=== PATIENT | male | born 1965 | race Hispanic/Latino ===

== ENCOUNTER 2021-02-01 10:51 | Emergency (ER) | payer OTHER ==
[2021-02-01 12:21] LABS: Absolute Lymphocytes (CBC) 1.3 K/uL (0.7-4.9); Basophils % 0.6 % (0-1.3); Hematocrit 44.5 % (39.6-49.0); Lymphocytes % 11.9 % (15.3-44.8); MPV 8.2 fL (7.6-11.3)
[2021-02-01 12:37] LABS: Potassium 3.9 mmol/L (3.5-5.1)
--- NOTE | 2021-02-01 12:55 | RAD REPORT ---
EXAM DESCRIPTION: CT - Head C Spine Cap Zeina Kent - 02/01/2021 12:35 pm CLINICAL HISTORY: Trauma, head and neck injury. Chest, abdomen and pelvis pain. fall 10 ft from ladder, head and facial pain, back pain, th COMPARISON: No comparisons TECHNIQUE: CT head without contrast. CT cervical spine without contrast with coronal and sagittal reformatted images. CT chest, abdomen and pelvis with IV contrast (approximately 100 mL nonionic IV contrast) with garza l and sagittal reformatted images of the spine. All CT scans are performed using dose optimization technique as appropriate and may include automated exposure control or mA/KV adjustment according to patient size. FINDINGS: CT HEAD WITHOUT CONTRAST: No intracranial hemorrhage, hydrocephalus or extra-axial fluid collection. Mild brain atrophy. No are as of brain edema or midline shift. The paranasal sinuses and mastoids are clear. The calvarium is intact. Nasal fracture is suspected, s eparately reported on dedicated face CT. CT CERVICAL SPINE WITHOUT CONTRAST: No fracture or subluxation. The prevertebral soft tissues are normal in thickness. CT CHEST, ABDOMEN, PELVIS WITH CONTRAST: The lungs are mildly emphysematous.Atelectasis is present both posterior lung bases with small pleura l effusion on the left. Mildly displaced left posterior eighth, ninth, tenth rib fractures. No evidence of intra-abdominal visceral injury, free fluid or free air. No concerning pelvic findings. Spinal column is intact. IMPRESSION: Mildly displaced left posterior eighth, ninth and tenth rib fractures. No pneumothorax.
--- NOTE | 2021-02-01 13:00 | RAD REPORT ---
EXAM DESCRIPTION: CT - CTFB CLINICAL HISTORY: FACIAL PAIN Trauma to face. COMPARISON: No comparisons TECHNIQUE: Axial 2 mm thick images of the face were obtained with sagittal and coronal reconstructio n images. All CT scans are performed using dose optimization technique as appropriate and may include automated exposure control or mA/KV adjustment according to patient size. FINDINGS: Mild comminuted nasal bone fracture is seen.Left posterior molar shows moderate-sized dick apical abscess with adjacent hyperostosis. The globes and orbital contents are grossly unremarkable.The paranasal sinuses and mastoids are essen tially clear. IMPRESSION: Mildly comminuted nasal bone fracture.
--- NOTE | 2021-02-01 13:50 | EDPHYS ---
Physician Documentation [facility] Name: Kvng Lopez Jr Age: 55 yrs Sex: Male : 1965 Arrival Date: 02/01/2021 Time: 10:54 Bed 26 Private MD: ED Physician Jonah May HPI: 02/01 13:44 This 55 yrs old Male presents to ER via Ambulatory with complaints of Fall rn Injury. 13:44 Details of fall: The patient fell from a height, from a ladder, approximately 10 feet. rn Onset: The symptoms/episode began/occurred yesterday. Associated injuries: The patient sustained upper back injury, injury to the chest, Left posterior ribs. Severity of symptoms: At their worst the symptoms were moderate, in the emergency department the symptoms are unchanged. The patient has not experienced similar symptoms in the past. The patient has not recently seen a physician. Patient reports fall from ladder approximately 10 feet, yesterday around 4 PM, struck a branch with face on the way down. No LOC. Reports left thoracic pain and back pain. Reports nasal pain and swelling. No blood thinners.. Historical: - Allergies: 11:07 No Known Allergies; jl7 - Home Meds: 11:07 None [Active]; jl7 - PMHx: 11:07 None; jl7 - PSHx: 11:07 None; jl7 - Immunization history:: Adult Immunizations up to date. - Social history:: Smoking status: Patient reports the use of cigarette tobacco products, smokes one pack cigarettes per day. - Family history:: not pertinent. - Hospitalizations: : No recent hospitalization is reported. ROS: 13:44 Constitutional: Negative for fever, chills, and weight loss, Eyes: Negative for injury, rn pain, redness, and discharge, ENT: Positive for nasal injury and pain Neck: Negative for injury, pain, and swelling, Cardiovascular: Negative for palpitations, and edema, Respiratory: Negative for shortness of breath, cough, wheezing, and pleuritic chest pain, Abdomen/GI: Negative for abdominal pain, nausea, vomiting, diarrhea, and constipation, Back: Positive for injury and back pain MS/Extremity: Negative for injury and deformity, Skin: Negative for injury, rash, and discoloration, Neuro: Negative for headache, weakness, numbness, tingling, and seizure. 13:44 All other systems are negative. Exam: 13:44 Constitutional: This is a well developed, well nourished patient who is awake, alert, rn appears uncomfortable Head/Face: Normocephalic, 4 cm laceration, superficial, over nasal bridge. Right periorbital swelling with ecchymosis. Eyes: Pupils equal round and reactive to light, extra-ocular motions intact. Neck: No midline cervical tenderness Chest/axilla: Tenderness over left posterior inferior ribs, no crepitus. Cardiovascular: Regular rate and rhythm. No pulse deficits. Respiratory: No increased work of breathing, no retractions or nasal flaring. Abdomen/GI: Soft, non-tender Back: No spinal tenderness or step-off Skin: Warm, dry MS/ Extremity: Pulses equal, no cyanosis. Neurovascular intact. Full, normal range of motion. Equal circumference. Neuro: Awake and alert, GCS 15, oriented to person, place, time, and situation. Cranial nerves II-XII grossly intact. Motor strength 5/5 in all extremities. Sensory grossly intact. Vital Signs: 11:05 BP 139 / 82; Pulse 85; Resp 17; Temp 98.1; Pulse Ox 99% ; Weight 68.04 kg; Height 5 ft. jl7 8 in. (172.72 cm); Pain 9/10; 12:00 BP 152 / 81; Pulse 80; Resp 16; Pulse Ox 100% ; vg1 13:00 BP 136 / 77; Pulse 72; Resp 16; Pulse Ox 98% on R/A; vg1 14:00 BP 132 / 81; Pulse 70; Resp 16; Pulse Ox 98% ; vg1 11:05 Body Mass Index 22.81 (68.04 kg, 172.72 cm) jl7 Donald Coma Score: 12:20 Eye Response: spontaneous(4). Verbal Response: oriented(5). Motor Response: obeys vg1 commands(6). Total: 15. Trauma Score (Adult): 12:20 Eye Response: spontaneous(1); Verbal Response: oriented(1); Motor Response: obeys vg1 commands(2); Systolic BP: > 89 mm Hg(4); Respiratory Rate: 10 to 29 per min(4); Donald Score: 15; Trauma Score: 12 MDM: 11:00 Patient medically screened. rn 13:44 Differential diagnosis: abrasion, closed head injury, contusion, fracture, laceration, rn multiple trauma, sprain, strain. Data reviewed: vital signs, nurses notes, lab test result(s), radiologic studies, CT scan, and as a result, I will discharge patient. Data interpreted: Pulse oximetry: on room air is 98 %. Interpretation: normal. Counseling: I had a detailed discussion with the patient and/or guardian regarding: the historical points, exam findings, and any diagnostic results supporting the discharge/admit diagnosis, lab results, radiology results, the need for outpatient follow up, to return to the emergency department if symptoms worsen or persist or if there are any questions or concerns that arise at home. Response to treatment: the patient's symptoms have mildly improved after treatment, and as a result, I will discharge patient. Special discussion: I discussed with the patient/guardian in detail that at this point there is no indication for admission to the hospital. It is understood, however, that if the symptoms persist or worsen the patient needs to return immediately for re-evaluation. ED course: CT shows minimally displaced left posterior rib fractures. No pneumothorax. No pulmonary contusion or hemothorax. Also with nasal fracture. Otherwise no acute findings. Will DC home with incentive spirometer and pain control. Had extensive discussion as to what not to do with rib fractures. Understands well and understands return precautions. Nasal laceration is too old to close, happened yesterday afternoon, patient understands. Wound dressed with Steri-Strips for approximation.. 02/01 11:19 Order name: Basic Metabolic Panel; Complete Time: 13:06 rn 02/01 11:19 Order name: CBC with Diff; Complete Time: 13:06 rn 02/01 11:19 Order name: Type And Screen; Complete Time: 13:44 rn 02/01 11:19 Order name: CT Traumagram (Head C Spine CAP W Con); Complete Time: 13:06 rn 02/01 11:19 Order name: CT Facial Bones W/O Con; Complete Time: 13:06 rn 02/01 12:53 Order name: CREATININE WHOLE BLOOD; Complete Time: 13:06 EDMS 02/01 11:19 Order name: Labs collected and sent; Complete Time: 12:14 rn 02/01 11:19 Order name: Wound Care; Complete Time: 12:22 rn 02/01 11:19 Order name: Wound dressing; Complete Time: 12:22 rn Administered Medications: 13:40 Drug: Zofran (Ondansetron) 4 mg Route: IVP; Site: left antecubital; vg1 14:01 Follow up: Response: No adverse reaction vg1 13:43 Drug: morphine 4 mg Route: IVP; Site: left antecubital; vg1 14:01 Follow up: Response: No adverse reaction; Marked relief of symptoms vg1 Disposition Summary: 02/01/21 13:49 Discharge Ordered Location: Home rn Problem: new rn Symptoms: have improved rn Condition: Stable rn Diagnosis - Multiple fractures of ribs, left side rn - Fracture of nasal bones rn - Laceration without foreign body of other part of head rn Followup: rn - With: Private Physician - When: As needed - Reason: Recheck today's complaints, Re-evaluation by your physician Discharge Instructions: - Discharge Summary Sheet rn - Nasal Fracture rn - Rib Fracture rn Forms: - Medication Reconciliation Form rn - Thank You Letter rn - Antibiotic marketing intern - Prescription Opioid Use rn - Work release form vg1 Prescriptions: - Augmentin 875-125 mg Oral Tablet - take 1 tablet by ORAL route every 12 hours for 10 days; 20 tablet; Refills: 0, rn Product Selection Permitted - Cyclobenzaprine 10 mg Oral Tablet - take 1 tablet by ORAL route every 8-12 hours As needed; 15 tablet; Refills: 0, rn Product Selection Permitted - Tramadol 50 mg Oral Tablet - take 1 tablet by ORAL route every 8 hours as needed; 15 tablet; Refills: 0, rn Product Selection Permitted Signatures: Dispatcher [employer] EDJonah Rasmussen MD MD rn Leal, Jahala RN RN Lilo Vargas, RN RN vg1 Corrections: (The following items were deleted from the chart) 13:46 13:44 Constitutional: Negative for fever, chills, and weight loss, Eyes: Negative for rn injury, pain, redness, and discharge, Neck: Negative for injury, pain, and swelling, Cardiovascular: Negative for palpitations, and edema, Respiratory: Negative for shortness of breath, cough, wheezing, and pleuritic chest pain, Abdomen/GI: Negative for abdominal pain, nausea, vomiting, diarrhea, and constipation, Back: Positive for injury and back pain MS/Extremity: Negative for injury and deformity, Skin: Negative for injury, rash, and discoloration, Neuro: Negative for headache, weakness, numbness, tingling, and seizure, rn
--- NOTE | 2021-02-01 13:50 | ER ---
Nurse's Notes [facility] Name: Kvng Lopez Jr Age: 55 yrs Sex: Male : 1965 Arrival Date: 02/01/2021 Time: 10:54 Bed 26 Private MD: Diagnosis: Multiple fractures of ribs, left side;Fracture of nasal bones;Laceration without foreign body of other part of head Presentation: 02/01 11:00 Chief complaint: Patient states: Fell from 10 foot ladder yesterday about 1730, face jl7 hit tree branch, did not loose consciousness, reports left sided back pain, pt is able to void and ambulate with some pain, denies N/V, denies blurred vision. Care prior to arrival: None. Mechanism of Injury: Fall from ladder approximately 10 feet. Trauma event details: Injury occurred in the [facility], Injury occurred: at home. Injury occurred: January 31, 2021 Injury occurred at: 17:30. 11:00 Acuity: FRANSISCO 3 jl7 11:00 Method Of Arrival: Ambulatory jl7 11:05 Coronavirus screen: Vaccine status: Patient reports receiving the 2nd dose of the covid jl7 vaccine. Date January 20, 2021 Moderna At this time, the client does not indicate any symptoms associated with coronavirus-19. Ebola Screen: No symptoms or risks identified at this time. Initial Sepsis Screen: Does the patient meet any 2 criteria? No. Patient's initial sepsis screen is negative. Does the patient have a suspected source of infection? No. Patient's initial sepsis screen is negative. Risk Assessment: Do you want to hurt yourself or someone else? Patient reports no desire to harm self or others. Onset of symptoms was January 31, 2021. Triage Assessment: 11:07 General: Appears in no apparent distress. uncomfortable, Behavior is calm, cooperative, jl7 appropriate for age. Pain: Complains of pain in left low back and left mid back Pain currently is 9 out of 10 on a pain scale. Trauma Activation: Not Applicable Physician: ED Physician; Name: ; Notified At: ; Arrived At: Physician: General Surgeon; Name: ; Notified At: ; Arrived At: Physician: Radiology; Name: ; Notified At: ; Arrived At: Physician: Respiratory; Name: ; Notified At: ; Arrived At: Physician: Lab; Name: ; Notified At: ; Arrived At: Historical: - Allergies: 11:07 No Known Allergies; jl7 - Home Meds: 11:07 None [Active]; jl7 - PMHx: 11:07 None; jl7 - PSHx: 11:07 None; jl7 - Immunization history:: Adult Immunizations up to date. - Social history:: Smoking status: Patient reports the use of cigarette tobacco products, smokes one pack cigarettes per day. - Family history:: not pertinent. - Hospitalizations: : No recent hospitalization is reported. Screenin:19 Abuse screen: Denies threats or abuse. Nutritional screening: No deficits noted. vg1 Tuberculosis screening: No symptoms or risk factors identified. Fall Risk Fall in past 12 months (25 points). No secondary diagnosis (0 pts). IV access (20 points). Ambulatory Aid- None/Bed Rest/Nurse Assist (0 pts). Gait- Normal/Bed Rest/Wheelchair (0 pts) Mental Status- Oriented to own ability (0 pts). Total Moore Fall Scale indicates No Risk (0-24 pts). Primary Survey: 11:08 NO uncontrolled hemorrhage observed. A: Airway: patent. Breathing/Chest: Respiratory jl7 pattern: regular, Respiratory effort: spontaneous, unlabored, Chest inspection: symmetrical rise and fall of the chest. Circulation: Skin color: pink, Skin temperature: warm. Disability Alert. Exposure/Environment: There is no evidence of uncontrolled external bleeding. Obvious injury(ies) are noted at this time: laceration and swelling noted to bridge on nose. 12:05 Reassessment Airway Airway Patent Breathing/Chest Respiratory pattern Regular vg1 Circulation Color [place] Disability Alert. Secondary Survey: 12:05 HEENT: Nose: clear to bilateral nares. deformity noted bridge of nose. swelling and vg1 abrasion noted. Gastrointestinal: No deficits noted. : No deficits noted. Musculoskeletal: Reports pain in nose, back and Left side of ribs. Assessment: 12:00 General: Appears in no apparent distress. uncomfortable, Behavior is calm, cooperative. vg1 Pain: Complains of pain in back, left side of ribs and face Pain currently is 9 out of 10 on a pain scale. Pain began 1 day ago. Noted to be grimacing. Neuro: Level of Consciousness is awake, alert, obeys commands, Oriented to person, place, time, situation. Cardiovascular: Patient's skin is warm and dry. Respiratory: Airway is patent Respiratory effort is even, unlabored. GI: No signs and/or symptoms were reported involving the gastrointestinal system. : No signs and/or symptoms were reported regarding the genitourinary system. EENT: Pt has abrasion and bruising to bridge of nose. Derm: Skin is pink, warm \T\ dry. Musculoskeletal: Circulation, motion, and sensation intact. 13:16 Reassessment: Patient appears in no apparent distress at this time. No changes from vg1 previously documented assessment. Patient and/or family updated on plan of care and expected duration. Pain level reassessed. Patient is alert, oriented x 3, equal unlabored respirations, skin warm/dry/pink. 14:00 Reassessment: Patient appears in no apparent distress at this time. No changes from vg1 previously documented assessment. Patient and/or family updated on plan of care and expected duration. Pain level reassessed. Patient is alert, oriented x 3, equal unlabored respirations, skin warm/dry/pink. Vital Signs: 11:05 BP 139 / 82; Pulse 85; Resp 17; Temp 98.1; Pulse Ox 99% ; Weight 68.04 kg; Height 5 ft. jl7 8 in. (172.72 cm); Pain 9/10; 12:00 BP 152 / 81; Pulse 80; Resp 16; Pulse Ox 100% ; vg1 13:00 BP 136 / 77; Pulse 72; Resp 16; Pulse Ox 98% on R/A; vg1 14:00 BP 132 / 81; Pulse 70; Resp 16; Pulse Ox 98% ; vg1 11:05 Body Mass Index 22.81 (68.04 kg, 172.72 cm) jl7 Donald Coma Score: 12:20 Eye Response: spontaneous(4). Verbal Response: oriented(5). Motor Response: obeys vg1 commands(6). Total: 15. Trauma Score (Adult): 12:20 Eye Response: spontaneous(1); Verbal Response: oriented(1); Motor Response: obeys vg1 commands(2); Systolic BP: > 89 mm Hg(4); Respiratory Rate: 10 to 29 per min(4); Donald Score: 15; Trauma Score: 12 ED Course: 10:54 Patient arrived in ED. ds1 11:00 Jonah May MD is Attending Physician. rn 11:05 Triage completed. jl7 11:07 Arm band placed on right wrist. jl7 12:14 Lilo Lopez, RN is Primary Nurse. vg1 12:19 Patient has correct armband on for positive identification. Bed in low position. Call vg1 light in reach. Side rails up X2. Adult w/ patient. 12:20 Patient maintains SpO2 saturation greater than 95% on room air. vg1 12:20 Thermoregulation: warm blanket given to patient. vg1 12:21 Wound care: to laceration located on nose was cleaned with Hibiclens, Patient tolerated dh4 well. 12:35 CT Facial Bones W/O Con In Process Unspecified. EDMS 12:35 CT Traumagram (Head C Spine CAP W Con) In Process Unspecified. EDMS 14:01 No provider procedures requiring assistance completed. IV discontinued, intact, vg1 bleeding controlled, No redness/swelling at site. Pressure dressing applied. Administered Medications: 13:40 Drug: Zofran (Ondansetron) 4 mg Route: IVP; Site: left antecubital; vg1 14:01 Follow up: Response: No adverse reaction vg1 13:43 Drug: morphine 4 mg Route: IVP; Site: left antecubital; vg1 14:01 Follow up: Response: No adverse reaction; Marked relief of symptoms vg1 Outcome: 13:49 Discharge ordered by . rn 14:01 Discharged to home via wheelchair, with family. vg1 14:01 Condition: stable 14:01 Discharge instructions given to patient, family, Instructed on discharge instructions, follow up and referral plans. medication usage, Demonstrated understanding of instructions, follow-up care, medications, Prescriptions given X 3. 14:09 Patient left the ED. vg1 Signatures: Dispatcher [employer] EDNH Latasha Schwarz ds1 Jonah May MD MD rn Leal, Jahala, RN RN kaitlyn7 Allen Chavez 4 Lilo Lopez RN RN vg1 Corrections: (The following items were deleted from the chart) 12:21 12:21 Wound care: to laceration located on nose dh4 dh4
[2021-02-01] MEDS ORDERED: MORPHINE 4 MG/ML SYR ONE (13:59)
[2021-02-01] MEDS ORDERED: ONDANSETRON 4 MG/2 ML VIAL ONE (13:59)
[2021-02-01 14:49] VITALS: TEMP 98.1
[2021-02-01 14:52] VITALS: O2SAT 98
[2021-02-01 14:53] VITALS: BP 132/81
== END 2021-02-01 14:09 | disposition home or self-care (01) ==
LOC: ER 10:51
DX: S22.42XA Multiple fractures of ribs, left side, initial encounter for closed fracture (principal); S02.2XXA Fracture of nasal bones, initial encounter for closed fracture; S01.81XA Laceration without foreign body of other part of head, initial encounter; W11.XXXA Fall on and from ladder, initial encounter; F17.210 Nicotine dependence, cigarettes, uncomplicated
CPT/HCPCS: 85025; 80048; 36415; 86900; 86850; 82565; 86901; 70450; 72125; 71260; 70486; 76377; 74177; 96375; 96374; 99284; Q9967; J2405